=== PATIENT | male | born 1970 | race Caucasian/White ===

== ENCOUNTER → 2018-03-29 08:58 | Outpatient (CLI) | payer MEDICARE, MEDICAID, SELFPAY ==
[2018-03-29 10:07] LABS: Absolute Lymphocyte Count 2.57 X10^3/ul (0.83-4.51); Absolute Neutrophil Count 3.9 X10^3/uL (2.0-7.7); Basophil# 0.02 X10^3/uL; Basophil% 0.3 % (0-1); Eosinophil# 0.07 X10^3/uL; Hematocrit 44.5 % (40-54); Hemoglobin 14.5 g/dl (13.0-16.5); Lymphocyte # 2.57 X10^3/ul (4.0); Lymphocyte % 36.1 % (19-41); Mean Corp Hgb Conc 32.6 g/gl (32-36); Mean Corpuscular Hgb 31.6 pg (27.0-32.0); Mean Corpuscular Volume 96.9 fL (80-94); Mean Platelet Vol. 8.1 fl (6.2-12.0); Monocyte# 0.59 X10^3/uL; Monocyte% 8.3 % (0-10); Neutrophil # 3.85 X10^3/uL (2.7-7.7); Neutrophil % 54.2 % (47-70); Platelet Count 238 K/mm3 (150-450); RBC Distribution Width CV 13.9 % (11.6-14.6); RBC Distribution Width SD 49.4 fl (35.1-43.9); Red Blood Count 4.59 M/mm3 (4.6-6.2); White Blood Count 7.1 K/mm3 (4.4-11.0)
[2018-03-29 10:09] LABS: POSITIVE COUNT NO; POSITIVE DIFFERENTIAL NO; POSITIVE MORPHOLOGY NO
[2018-03-29 10:30] LABS: Anion Gap 6 (5-15); BUN 10 mg/dL (7-18); BUN/Creat Ratio 15.2 RATIO (10-20); Calcium,Total 8.5 mg/dL (8.5-10.1); Chloride 104 mmol/L (98-107); Cholesterol 141 mg/dL (200); Creatinine, Serum 0.66 mg/dL (0.70-1.30); EST Glomerular Filtration Rate 137 mL/min (>60); Est Glom Filt Rate - Afr Amer 165 mL/min (>60); Glucose 81 mg/dL (74-106); High Density Lipoprotein 30 mg/dL; Potassium 4.4 mmol/L (3.5-5.1); Sodium Level 137 mmol/L (136-145); Triglycerides 106 mg/dL; Very Low Density Lipoprotein 21 mg/dL (5-40)
== END ==
PROVIDERS: Family Provider Family Medicine; PCP Family Medicine; Visit Provider Family Medicine
DX: E78.5 Hyperlipidemia, unspecified (principal); R56.9 Unspecified convulsions
CPT/HCPCS: 36415; 80048; 80061; 85025

== ENCOUNTER → 2018-09-26 09:24 | Outpatient (CLI) | payer MEDICARE, MEDICAID, SELFPAY ==
[2018-09-26 10:25] LABS: ALB/GLOB Ratio 0.8 RATIO (0.9-2.4); AST(SGOT) 9 U/L (15-37); Alanine Aminotransfer ALT/SGPT 15 U/L (16-61); Alkaline Phosphatase 95 U/L (45-117); Anion Gap 6 (5-15); BUN 13 mg/dL (7-18); BUN/Creat Ratio 20.3 RATIO (10-20); Calcium,Total 8.7 mg/dL (8.5-10.1); Chloride 104 mmol/L (98-107); Cholesterol 180 mg/dL (200); Creatinine, Serum 0.64 mg/dL (0.70-1.30); EST Glomerular Filtration Rate 141 mL/min (>60); Est Glom Filt Rate - Afr Amer 171 mL/min (>60); Globulin 3.9 g/dL (2.2-4.2); Glucose 77 mg/dL (74-106); High Density Lipoprotein 33 mg/dL; Potassium 4.4 mmol/L (3.5-5.1); Protein, Total 6.9 g/dL (6.4-8.2); Sodium Level 137 mmol/L (136-145); Triglycerides 237 mg/dL; Very Low Density Lipoprotein 47 mg/dL (5-40)
== END ==
PROVIDERS: Family Provider Family Medicine; PCP Family Medicine; Referring Provider Family Medicine; Visit Provider Family Medicine
DX: E78.5 Hyperlipidemia, unspecified (principal)
CPT/HCPCS: 36415; 80053; 80061

== ENCOUNTER → 2019-04-25 15:30 | Outpatient (CLI) | payer MEDICARE, MEDICAID, SELFPAY ==
[2019-04-25 17:57] LABS: Cholesterol 163 mg/dL (200); High Density Lipoprotein 29 mg/dL; Triglycerides 228 mg/dL; Very Low Density Lipoprotein 46 mg/dL (5-40)
== END ==
PROVIDERS: Family Provider Family Medicine; PCP Family Medicine; Visit Provider Family Medicine
DX: E78.5 Hyperlipidemia, unspecified (principal)
CPT/HCPCS: 36415; 80061

== ENCOUNTER → 2020-08-06 14:19 | Outpatient (CLI) | payer MEDICARE, MEDICAID, SELFPAY ==
[2020-08-06 18:10] LABS: BUN 10 mg/dL (7-18); Calcium,Total 8.5 mg/dL (8.5-10.1); Cholesterol 163 mg/dL (200); Creatinine, Serum 0.71 mg/dL (0.70-1.30); EST Glomerular Filtration Rate 124 mL/min (>60); Est Glom Filt Rate - Afr Amer 150 mL/min (>60); Glucose 96 mg/dL (74-106); Sodium Level 135 mmol/L (136-145); Triglycerides 420 mg/dL
[2020-08-06 18:11] LABS: Anion Gap 4 (5-15); Chloride 98 mmol/L (98-107); High Density Lipoprotein 34 mg/dL
== END ==
PROVIDERS: PCP Family Medicine; Referring Provider Family Medicine; Visit Provider Family Medicine
DX: E78.5 Hyperlipidemia, unspecified (principal)
CPT/HCPCS: 36415; 80048; 80061

== ENCOUNTER 2020-09-01 07:02 | Day surgery (SDC) | payer MEDICARE, MEDICAID, SELFPAY ==
[2020-08-18 13:53] VITALS: BMI 27.3
[2020-09-01] VITALS (7 sets, daily range): BP systolic 91–109; BP diastolic 65–84; PULSE 68–76; RESP 16; TEMP 36.3–36.9; O2SAT 92–98; BMI 24.3
[2020-09-01] MEDS: Lactated Ringers 1,000 ML 100 ML IV (07:35)
--- NOTE | 2020-09-01 07:41 | HP_ITS ---
Intake Vital Signs 08/18/20 Height 5 ft 8 in 08/18/20 Weight: 180 lb 4 oz 08/18/20 BMI 27.3 08/18/20 BP 110/72 08/18/20 Blood Pressure Location Lt brachial 08/18/20 Position Sitting 08/18/20 Respiration 20 H 08/18/20 Pulse 70 08/18/20 Pulse Source NIBP 08/18/20 Pulse Oximetry (%) 95 08/18/20 Oxygen Delivery Method room air Intake Visit Reasons: CSCOPE Chief Complaint: screening colonoscopy Customer Experience Strategist Required: No Is patient in pain?: No Allergies No Known Allergies Allergy (Verified 05/16/13 14:49) Medications Pravastatin [Pravachol] 80 mg PO QHS 05/16/13 [History Confirmed 08/18/20] Propranolol HCl [Inderal (Beta Rosa)] 40 mg PO BID 05/16/13 [History Confirmed 08/18/20] Carbamazepine [Tegretol] 200 mg PO BID 06/16/13 [History Confirmed 08/18/20] Escitalopram Oxalate [Lexapro] 10 mg PO DAILY 12/06/13 [History Confirmed 08/18/20] Nicotine [Nicoderm Cq] 21 mg TRANSDERM. DAILY #30 patch 12/24/13 [Rx Confirmed 08/18/20] dextromethorphan 20 mg-quinidine 10 mg capsule 1 cap PO Q12H cap 08/18/20 [History] divalproex 500 mg tablet,extended release 24 hr 500 mg PO BID tab 08/18/20 [History Confirmed 08/18/20] PFSH Medical History (Updated 08/18/20 @ 13:52 by Arina Cates) Subarachnoid hemorrhage (Acute) Schizophrenia (Chronic) Remote TBI (Chronic) Hyperlipidemia (Acute) Seizure (Acute) Surgical History (Updated 08/18/20 @ 13:50 by Arina Cates) No significant past surgical history (Acute) Family History (Updated 08/18/20 @ 13:53 by Arina Cates) Father No problems noted. Social History (Updated 08/18/20 @ 13:[address] Santy Valdovinos MD) Smoking Status: Current every day smoker HPI HPI HPI: ANUJ LARSEN, is a 50 M who presents to the office today for HPI HPI Surgical H&P: Yes HPI: ANUJ LARSEN, is a 50 M who presents to the office today for Screening colonoscopy. The patient reports he is never had a screening colonoscopy. He denies any abdominal pain or blood in his stool. He has unknown family history. ROS General General: No weight change, appetite, fatigue, colon cancer, breast cancer or weakness HEENT HEENT: No difficulty swallowing, eye injury, eye surgery, swollen glands or hoarseness Endo Endocrine: No thyroid disease, diabetes mellitus, thyroid cancer, Hair loss, heat intolerance or cold intolerance Musc Musculoskeletal: No back problems, arthritis, rheumatoid arthritis, gout or joint pain Cardio Cardiovascular: No murmur, pacemaker, heart disease, atrial fibrillation, high blood pressure, heart attack, heart stent, palpitations, shortness of breat with exertion or chest pain Psych Psychiatric: No depression, anxiety or hearing voices Resp Respiratory: No shortness of breath, No sleep apnea, No cough, No COPD, No asthma, No emphysema, No wheezing Gastro Gastrointestinal: No abdominal pain, No nausea or vomiting, No diarrhea, No constipation, No blood in stool, No acid reflux, No hemorrhoids, No ulcers, No gallbladder problem, No black,tarry stools Andriy Hematologic: No blood thinners, No blood disorders, No bleeding, No anemia, No blood clots Neuro Neurologic: No weakness Exam Const General: cooperative Orientation: alert Limitations: altered mental status Resp Effort & Inspection: normal respiratory effort Auscultation: clear to auscultation bilaterally Cardio Rate: regular rate Rhythm: regular rhythm Heart Sounds: no murmurs GI Inspection: non-distended Palpation: soft, nontender Assessment & Plan Problems 1. Screen for colon cancer Z12.11 Plan Patient is here to discuss screening colonoscopy. He is here with his caregiver. He has no nausea or vomiting or abdominal pain or blood in his stool. He will have a screening colonoscopy. I explained endoscopy in detail to the patient. I explained the risks including but not limited to stroke or heart attack with anesthesia, perforation of the GI tract, bleeding, infection. I explained that any of these could necessitate further emergency surgery. The patient understands and all questions were answered sufficiently. The patient wishes to proceed with procedure. Santy Valdovinos MD Pager: [facility] [address] [place] [address], [address] [place] [address] Office: Orders Orders: Colonoscopy Today Z12.11 Medications New: dextromethorphan-quinidine 20-10 mg 1 cap PO Q12H Discontinued: lorazepam Discontinued Reason: Pt no longer taking 0.5 mg PO Q4H PRN PRN 30 tabs 0RF Anxiety/Agitation Coding Level of Care Code Off vis,new,level 2 Diagnoses Screen for colon cancer Z12.11 I have re-examined the patient. There are no clinical changes since date of exam.
--- NOTE | 2020-09-01 08:00 | COLBX_PTH ---
PATIENT: ANUJ LARSEN LOC: EN U#:[id number] AGE/SX: 50/M ROOM: RE09/01/[address]: Dr. Santy Valdovinos MD : 1970 BED: DIS: 09/01/2020 SPEC #: [id number] RECD: 09/01/20 13:44 STATUS: BERNICE RANJITH #: [id number] JADEN: 09/01/20 08:[address]: Santy Valdovinos DEPT: SURGICAL PATHOLOGY RECD BY: Jen Watts ENTERED: 09/02/20 07:37 SP TYPE: COLON BX OTHR DR: Dr. Rodney Carroll MD Tissues: A - Transverse colon B - Transverse colon Procedures: Surgery Specimen Level IV HEADER OPERATION: Colonoscopy (MAC) PRE-OP DIAGNOSIS: Screen for colon cancer TISSUE SUBMITTED: A - Transverse colon polyp, B - Distal transverse colon polyp MICROSCOPIC DIAGNOSIS A. Transverse colon polyp, biopsy: Hyperplastic polyp. B. Distal transverse colon polyp, biopsy: Fragments of hyperplastic polyp. AM:anil 09/03/2020 MICROSCOPIC DESCRIPTION Slides are reviewed. GROSS DESCRIPTION A - Received in fixative is one container labeled with the patient's name and designated transverse colon polyp. The specimen consists of a khan-pink polyp measuring 0.7 x 0.5 x 0.3 cm. The specimen is totally submitted in one cassette. B - Received in fixative is one container labeled with the patient's name and designated distal transverse colon polyp. The specimen consists of multiple irregular fragments of light khan soft tissue that in aggregate measure 2 x 0.5 x 0.2 cm. The specimen is totally submitted in one cassette. / SJ:anil 09/02/20 TC:5 CPT: 42564 x2
--- NOTE | 2020-09-01 08:25 | OP.CCLET_ITS ---
09/01/2020 Rodney Carroll MD [address] [id number] Re : Colonoscopy procedure for Manolo Saucedo Dear Dr. Carroll This procedure was performed on Tuesday, September 01, 2020. My impressions and recommendations are as follows: Impressions : - Two 14 mm polyps in the transverse colon and in the distal transverse colon, removed with a hot snare. Resected and retrieved. - The examination was otherwise normal on direct and retroflexion views. Recommendations : - Discharge patient to home. - Resume previous diet. - Continue present medications. - Await pathology results. - Repeat colonoscopy in 3 years for surveillance of multiple polyps. My findings are described in the full procedure note, which is enclosed. If I can be of further assistance, please feel free to contact me at Doctor phone number(s): , Work: . Sincerely, Santy Valdovinos MD 09/01/2020 8:24:57 AM This report has been signed electronically.
--- NOTE | 2020-09-01 08:25 | OP.COLON_ITS ---
Patient Name: Manolo Saucedo Procedure Date: 09/01/2020 7:50 AM Date of : 1970 Age: 50 Procedure: Colonoscopy Indications: Screening for colorectal malignant neoplasm Providers: Santy Valdovinos MD Referring MD: Rodney Carroll MD Medicines: Monitored Anesthesia Care Patient Profile: This is a 50 year old male. Refer to note in patient chart for documentation of history and physical. Last Colonoscopy: none. The patient's first colonoscopy is today. Complications: No immediate complications. Procedure: Pre-Anesthesia Assessment: - Prior to the procedure, a History and Physical was performed, and patient medications and allergies were reviewed. The patient's tolerance of previous anesthesia was also reviewed. The risks and benefits of the procedure and the sedation options and risks were discussed with the patient. All questions were answered, and informed consent was obtained. Prior Anticoagulants: The patient has taken no previous anticoagulant or antiplatelet agents. After reviewing the risks and benefits, the patient was deemed in satisfactory condition to undergo the procedure. After I obtained informed consent, the scope was passed under direct vision. Throughout the procedure, the patient's blood pressure, pulse, and oxygen saturations were monitored continuously. The pediatric colonoscope was introduced through the anus and advanced to the cecum, identified by appendiceal orifice and ileocecal valve. The colonoscopy was performed without difficulty. The patient tolerated the procedure well. The quality of the bowel preparation was good. Scope In: 7:59:31 AM Scope Withdrawal Time 0 hours 12 minutes 52 seconds Scope Out: 8:19:38 AM Total Procedure Duration Time 0 hours 20 minutes 7 seconds Findings: Two sessile polyps were found in the transverse colon and distal transverse colon. The polyps were 14 mm in size. These polyps were removed with a hot snare. Resection and retrieval were complete. The exam was otherwise without abnormality on direct and retroflexion views. Impression: - Two 14 mm polyps in the transverse colon and in the distal transverse colon, removed with a hot snare. Resected and retrieved. - The examination was otherwise normal on direct and retroflexion views. Recommendation: - Discharge patient to home. - Resume previous diet. - Continue present medications. - Await pathology results. - Repeat colonoscopy in 3 years for surveillance of multiple polyps. Procedure Code(s): --- Professional --- 66939, Colonoscopy, flexible; with removal of tumor(s), polyp(s), or other lesion(s) by snare technique Diagnosis Code(s): --- Professional --- Z12.11, Encounter for screening for malignant neoplasm of colon D12.3, Benign neoplasm of transverse colon (hepatic flexure or splenic flexure) CPT copyright 2017 [employer]. All rights reserved. The codes documented in this report are preliminary and upon chair mechanic review may be revised to meet current compliance requirements. Santy Valdovinos MD 09/01/2020 8:24:57 AM This report has been signed electronically. Number of Addenda: 0 Note Initiated On: 09/01/2020 7:50 AM
== END 2020-09-01 09:29 | disposition home or self-care (01) ==
LOC: EN 07:02 → AC 07:03
PROVIDERS: PCP Family Medicine; Referring Provider Family Medicine; Visit Provider Surgery
PROC: 0DJD8ZZ Inspection of Lower Intestinal Tract, Via Natural or Artificial Opening Endoscopic (ICD-10-PCS; CPT 45378; principal; 2020-09-01 07:55)
DX: Z12.11 Encounter for screening for malignant neoplasm of colon (principal); K63.5 Polyp of colon; I10 Essential (primary) hypertension; R56.9 Unspecified convulsions; F17.200 Nicotine dependence, unspecified, uncomplicated; E78.00 Pure hypercholesterolemia, unspecified; F41.9 Anxiety disorder, unspecified; F32.9 Major depressive disorder, single episode, unspecified; Z79.899 Other long term (current) drug therapy; Z20.822 Contact with and (suspected) exposure to COVID-19
CPT/HCPCS: 45380; 87426; 88305; C9803; J7120

== ENCOUNTER → 2022-09-08 | Outpatient (CLI) | payer MEDICARE, MEDICAID, SELFPAY ==
[2022-09-08 18:03] LABS: Absolute Lymphocyte Count 2.84 X10^3/uL (0.83-4.51); Absolute Neutrophil Count 2.1 X10^3/uL (2.0-7.7); Basophil# 0.03 X10^3/uL; Basophil% 0.6 % (0-1); Eosinophil# 0.09 X10^3/uL; Eosinophils% 1.7 % (0-5); Hematocrit 42.1 % (40-54); Hemoglobin 13.3 g/dL (13.0-16.5); Lymphocyte # 2.84 X10^3/ul (0.83-4.51); Lymphocyte % 52.3 % (19-41); Mean Corp Hgb Conc 31.6 g/dL (32-36); Mean Corpuscular Hgb 31.7 pg (27.0-32.0); Mean Corpuscular Volume 100.2 fL (80-94); Mean Platelet Vol. 8.9 fl (6.2-12.0); Monocyte# 0.38 X10^3/uL; NRBC Flagged by Analyzer 0 % (0-5); Neutrophil # 2.08 X10^3/uL (2.7-7.7); Neutrophil % 38.2 % (47-70); Platelet Count 214 K/mm3 (150-450); RBC Distribution Width CV 12.4 % (11.6-14.6); RBC Distribution Width SD 45.5 fl (35.1-43.9); White Blood Count 5.4 K/mm3 (4.4-11.0)
[2022-09-08 18:19] LABS: ALB/GLOB Ratio 0.8 RATIO (0.9-2.4); AST(SGOT) 16 U/L (15-37); Alanine Aminotransfer ALT/SGPT 28 U/L (16-61); Albumin, Serum 3.1 g/dL (3.2-5.0); Alkaline Phosphatase 66 U/L (45-117); Anion Gap 5 (5-15); BUN 18 mg/dL (7-18); BUN/Creat Ratio 22.2 RATIO (10-20); Calcium,Total 8.9 mg/dL (8.5-10.1); Chloride 105 mmol/L (98-107); Cholesterol 167 mg/dL (200); Creatinine, Serum 0.81 mg/dL (0.70-1.30); EST Glomerular Filtration Rate 106 mL/min (>60); Est Glom Filt Rate - Afr Amer 128 mL/min (>60); Globulin 3.8 g/dL (2.2-4.2); Glucose 80 mg/dL (74-106); High Density Lipoprotein 35 mg/dL; Potassium 5.2 mmol/L (3.5-5.1); Protein, Total 6.9 g/dL (6.4-8.2); Sodium Level 138 mmol/L (136-145); Triglycerides 274 mg/dL; Very Low Density Lipoprotein 55 mg/dL (5-40)
[2022-09-08 18:37] LABS: Valproic Acid (Depakene) Level 82 ug/mL (50-100)
== END | disposition home or self-care (01) ==
LOC: MFPLAB 15:48
PROVIDERS: PCP Family Medicine; Referring Provider Family Medicine; Visit Provider Family Medicine
DX: E78.5 Hyperlipidemia, unspecified (principal); R56.9 Unspecified convulsions
CPT/HCPCS: 36415; 80053; 80061; 80156; 80164; 85025

== ENCOUNTER 2024-03-10 08:49 | Inpatient (IN) | payer MEDICARE, MEDICAID, SELFPAY ==
[2024-03-10] VITALS (7 sets, daily range): BP systolic 91–111; BP diastolic 63–74; PULSE 87–109; RESP 13–20; TEMP 36.5–36.8; O2SAT 91–99; BMI 25.0
[2024-03-10 09:13] LABS: Bedside Glucose 119 mg/dL (74-106)
--- NOTE | 2024-03-10 09:14 | CT_ITS ---
EXAM: CT ABDOMEN AND PELVIS WITH INTRAVENOUS CONTRAST CLINICAL INDICATION: abdominal pain TECHNIQUE: Helically acquired images were obtained of the abdomen and pelvis with intravenous contrast. This CT exam was performed using one or more of the following dose reduction techniques: automated exposure control, adjustment of the mA and/or kV according to patient size, and/or use of iterative reconstruction technique. CONTRAST: [id number] 100ML COMPARISON: No relevant prior studies available. FINDINGS: LOWER THORAX: Focal airspace opacification within the right upper lobe posterior segment adjacent to the fissure suggestive of pneumonia. Dependent atelectatic changes of both lower lobes of the lung. ABDOMEN: LIVER: Normal. Homogeneous. No focal mass. GALLBLADDER AND BILE DUCTS: Normal. No calcified gallstones. No gallbladder distention or wall edema. No intra- or extrahepatic biliary ductal dilation. PANCREAS: Normal. No focal cystic or solid mass. SPLEEN: Normal. Normal size without focal cystic or solid mass. ADRENALS: Normal. No nodules. KIDNEYS AND URETERS: Normal. Normal renal size and position. No hydronephrosis. STOMACH AND BOWEL: Normal. No bowel distention. No focal inflammatory change. PELVIS: APPENDIX: Appendix is visualized and normal in appearance. BLADDER: Normal. REPRODUCTIVE: Unremarkable as visualized. No mass. ABDOMEN and PELVIS: INTRAPERITONEAL SPACE: Normal. No ascites or other fluid collection. No free air. BONES/JOINTS: No suspicious lytic or blastic abnormality. SOFT TISSUES: Normal. No discrete abdominal or pelvic wall hernia. VASCULATURE: Normal. Abdominal aorta is non-dilated. LYMPH NODES: Normal. No enlarged lymph nodes. CT/Abdomen/Pelvis W IV Cont ONLY IMPRESSION: 1. No acute abdominal or pelvic abnormality. 2. Suspect right upper lobe pneumonia. Electronically Signed: Goran Pulido MD at 10:41 EDT ,
--- NOTE | 2024-03-10 09:15 | CT_ITS ---
INDICATION: confusion EXAMINATION: CT BRAIN - CT Head or Brain W/O Contrast Injection TECHNIQUE: Multiple axial images were obtained of the head without intravenous contrast. The protocol utilizes one or more of the following dose reduction techniques: automated exposure control, adjustment of mA and/or kV according to patient size,and/or use of iterative reconstruction technique. IV Contrast dosage and agent: None. RADIATION DOSAGE (If Supplied By Facility): CTDIvol = ( 44.99 ) mGy, DLP = ( 829.85 ) mGycm COMPARISON: Prior study dated: 12/16/2013 FINDINGS: BRAIN PARENCHYMA: No intra- or extra-axial hemorrhage. No evidence of acute infarct. No intracranial mass or mass effect. There is preservation of the phillips/white matter interface. Posterior fossa structures are unremarkable. CSF SPACES: Appropriate for age. No hydrocephalus. Basal cisterns are patent. CALVARIUM, SKULL BASE, PARANASAL SINUSES AND MASTOID AIR CELLS: Clear. No discrete lytic or blastic abnormalities. ORBITS: Both globes, extraocular muscles, optic nerves and retrobulbar fat appear unremarkable. CT/Brain/Head without Contrast IMPRESSION: No acute intracranial process. Electronically Signed: Abel Centeno MD at 11:10 EDT ,
--- NOTE | 2024-03-10 09:17 | EX.ED.DYSGE1 ---
HPI History of Present Illness Chief Complaint: Weakness Narrative Narrative: Chief complaint and HPI: Confusion. 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 Patient is a poor historian. History obtained by patient's sister who states that this morning she found the patient laying on the ground unable to get himself up or put on his clothes. She called EMS. Patient was found to be hypoglycemic with a glucose in the 60s. Was given oral glucose. Sister still feels that the patient is very slow to respond and does not seem at his baseline. Patient is unable to tell me his birthday which sister states he can usually. Last known normal was yesterday evening around 9 PM. Patient usually resides in a custodial. Patient and sister deny fever, URI symptoms, chest pain, shortness of breath, nausea, vomiting. Patient endorses cough and abdominal pain. Patient is incontinence intermittently at baseline. Review of systems: See HPI Medications: As listed on the chart Allergies: As listed on the chart PFSH: Per chart Vital signs: As listed on the chart. Reviewed. Physical exam: Gen: Alert, NAD, oriented to self and place but does not know his birthday which is abnormal for him Head: Normocephalic, atraumatic Eyes: No sclera icterus, conjunctiva clear, PERRL, EOMI ENT: Moist mucous membranes, No facial asymmetry Neck: Trachea midline, No JVD CV: RRR, no murmurs, no peripheral edema Resp: Lungs CTA BL, no w/r/c GI: Abd soft, non-distended, mildly tender to palpation diffusely, no r/r/g Musc: Moves all extremities, no deformity, strength equal in all extremities Skin: Warm, dry Neuro: Alert, grossly intact, sensation intact, no focal deficits Psych: Cooperative, appropriate mood and affect EKG: Interpreted by me/EM physician: EKG shows normal sinus rhythm with a heart rate of 95. There is some nonspecific ST changes and V3 and V4. No ST elevation. Diagnostic: Interpreted by me/EM physician: 1 view chest x-ray with consolidation in the right upper lobe concern for pneumonia. No effusions. No pneumothorax. [facility] Medical History Hyperlipidemia Seizure Subarachnoid hemorrhage Schizophrenia Remote TBI Home Medications ?Medication ?Instructions ?Recorded ?Last Taken ?Type pravastatin 80 mg tablet 80 mg PO QHS cholesterol 05/16/13 Unknown History propranolol 40 mg tablet 20 mg PO BID Blood Pressure/ HR 05/16/13 09/01/20 History carbamazepine 200 mg tablet 200 mg PO DAILY Epilepsy 06/16/13 09/01/20 History dextromethorphan 20 mg-quinidine 1 cap PO Q12H Emotional 08/18/20 Unknown History 10 mg capsule Incontinence divalproex 500 mg tablet,extended 500 mg PO BID Epilepsy 08/18/20 09/01/20 History release 24 hr carbamazepine 200 mg tablet 400 mg PO QHS Mental/ Mood disorder 08/27/20 Unknown History escitalopram oxalate 20 mg tablet 20 mg PO DAILY Mood 08/27/20 Unknown History meloxicam 15 mg tablet 15 mg PO DAILY Arthritis 03/10/24 Unknown History Allergy/AdvReac Type Severity Reaction Status Date / Time No Known Allergies Allergy Verified 03/10/24 08:57 Family History Father No problems noted. Family History unable to obtain Surgical History No significant past surgical history Social History Smoking Status: Current every day smoker tobacco type: cigarettes EXAM Physical Exam Const Vital Signs: 03/10/24 08:50 03/10/24 08:54 03/10/24 10:50 Temperature 97.7 F L Temperature Source Temporal Pulse Rate 94 93 Respiratory Rate 16 18 Respiratory Effort Normal Respiratory Pattern Normal Blood Pressure 109/74 103/66 Blood Pressure Mean 85 78 Pulse Ox 93 93 Oxygen Delivery Method Room Air Room Air 03/10/24 12:00 Temperature Temperature Source Pulse Rate 89 Respiratory Rate 20 H Respiratory Effort Respiratory Pattern Blood Pressure 91/63 Blood Pressure Mean 72 Pulse Ox 91 Oxygen Delivery Method Room Air MDM MDM MDM Narrative Medical decision making narrative: 53-year-old male presents for evaluation of generalized weakness, confusion, abdominal pain. Also endorses cough. Differential diagnosis includes but is not limited to viral illness, gastroenteritis, diverticulitis, pneumonia, CAD, seizure. Low suspicion for TIA/CVA suspect more encephalopathy. Patient has intellectual disability due to head trauma which makes physical exam and history not as reliable. NS bolus ordered. Abdominal pain/infectious workup ordered including labs and CT abdomen and pelvis and CT head. intermediate called in and spoke with nursing they are requesting tox screen be ordered given that he was at his sister's house. This was ordered. EKG reviewed. CBC with mild leukocytosis of 12 with a new anemia of 12.1. CMP without MARCUS or electrolyte abnormality. Patient does have mild baseline transaminitis. Lipase unremarkable. UA negative for UTI. Urine drug screen negative. Lactic acid elevated at 2.3. This may be due to infection versus possible unwitnessed seizure. Troponin unremarkable. CT head without any acute intracranial abnormality. CT abdomen pelvis without acute intra-abdominal pathology but suspect right upper lobe pneumonia. Chest x-ray confirms this. Patient's blood pressure drifting down to the 90s. Another NS bolus ordered. Azithromycin and Rocephin ordered for suspected community-acquired pneumonia. Given patient's generalized weakness, encephalopathy, lactic acidosis with pneumonia he will require admission for antibiotics and further observation. Hospital service was contacted and patient was discussed. Dr. Mckeon excepted admission. Impression 1. Encephalopathy multifactorial 2. Pneumonia 3. Lactic acidosis 4. Anemia Lab Data Labs: Laboratory Results - last 24 hr 03/10/24 03/10/24 03/10/24 08:55 09:10 09:25 WBC 12.0 H RBC 3.86 L Hgb 12.1 L Hct 37.3 L MCV 96.6 H MCH 31.3 MCHC 32.4 RDW Std Deviation 42.6 RDW Coeff of Smith 12.0 Plt Count 239 MPV 8.0 Immature Gran % (Auto) 0.700 Neut % (Auto) 72.9 H Lymph % (Auto) 14.1 L [place] % (Auto) 11.8 H Eos % (Auto) 0.1 Baso % (Auto) 0.4 Absolute Neuts (auto) 8.7 H Absolute Lymphs (auto) 1.69 Nucleated RBC % 0 Sodium 136 Potassium 3.9 Chloride 104 Carbon Dioxide 23.0 Anion Gap 9 BUN 12 Creatinine 0.79 Est GFR (MDRD) Af Amer 132 Est GFR (MDRD) Non-Af 109 BUN/Creatinine Ratio 15.2 Glucose 134 H Lactic Acid 2.3 H* Calcium 9.2 Magnesium Total Bilirubin 0.20 AST 13 L ALT 11 L Alkaline Phosphatase 70 Troponin I High Sens 3 Total Protein 7.1 Albumin 2.6 L Globulin 4.5 H Albumin/Globulin Ratio 0.6 L Lipase 34 Urine Color Urine Clarity Urine pH Ur Specific [place] Urine Protein Urine Glucose (UA) Urine Ketones Urine Occult Blood Urine Nitrite Urine Bilirubin Urine Urobilinogen Ur Leukocyte Esterase Urine RBC Urine WBC Ur Squamous Epith Cells Urine Bacteria Urine Mucus Urine Opiates Screen Urine Methadone Screen Ur Barbiturates Screen Ur Phencyclidine Scrn Ur Amphetamines Screen MDMA (Ecstasy) Screen U Benzodiazepines Scrn Urine Cocaine Screen U Cannabinoids Screen Ur Drug Screen Comment Ethyl Alcohol < 3.0 POC Glucose 119 H 03/10/24 03/10/24 10:16 10:35 WBC RBC Hgb Hct MCV MCH MCHC RDW Std Deviation RDW Coeff of Smith Plt Count MPV Immature Gran % (Auto) Neut % (Auto) Lymph % (Auto) [place] % (Auto) Eos % (Auto) Baso % (Auto) Absolute Neuts (auto) Absolute Lymphs (auto) Nucleated RBC % Sodium Potassium Chloride Carbon Dioxide Anion Gap BUN Creatinine Est GFR (MDRD) Af Amer Est GFR (MDRD) Non-Af BUN/Creatinine Ratio Glucose Lactic Acid Calcium Magnesium 1.8 Total Bilirubin AST ALT Alkaline Phosphatase Troponin I High Sens Total Protein Albumin Globulin Albumin/Globulin Ratio Lipase Urine Color Yellow Urine Clarity Clear Urine pH 6.0 Ur Specific [place] 1.010 Urine Protein 30 H Urine Glucose (UA) Normal Urine Ketones 5 H Urine Occult Blood Negative Urine Nitrite Negative Urine Bilirubin Negative Urine Urobilinogen Normal Ur Leukocyte Esterase Negative Urine RBC 0-5 SEEN Urine WBC 0-5 SEEN Ur Squamous Epith Cells 0-5 SEEN Urine Bacteria 0 SEEN Urine Mucus 0 SEEN Urine Opiates Screen NEGATIVE Urine Methadone Screen NEGATIVE Ur Barbiturates Screen NEGATIVE Ur Phencyclidine Scrn NEGATIVE Ur Amphetamines Screen NEGATIVE MDMA (Ecstasy) Screen NEGATIVE U Benzodiazepines Scrn NEGATIVE Urine Cocaine Screen NEGATIVE U Cannabinoids Screen NEGATIVE Ur Drug Screen Comment Ethyl Alcohol POC Glucose Radiography Diagnostic Testing: Clinical Impression(s) from Imaging Studies Abdomen/Pelvis CT 03/10/24 09:14 IMPRESSION: 1. No acute abdominal or pelvic abnormality. 2. Suspect right upper lobe pneumonia. Electronically Signed: Goran Pulido MD at 10:41 EDT Reading Location ID and State: [facility] / [place] Tel , Service support , Brain CT 03/10/24 09:15 IMPRESSION: No acute intracranial process. Electronically Signed: Abel Centeno MD at 11:10 EDT , Chest X-Ray 03/10/24 09:35 IMPRESSION: Patchy infiltrates in the right upper lobe and left lung base concerning for pneumonia. Electronically Signed: Abel Centeno MD at 11:35 EDT , Discharge Plan Disposition Disposition: Acute Care Hospital [facility] Discharge Date/Time: 03/10/24 13:08
[2024-03-10] MEDS: 0.9% Normal Saline (1000mL) 1,000 ML 999 ML IV ×2 (09:23→12:28)
[2024-03-10 09:33] LABS: Absolute Lymphocyte Count 1.69 X10^3/uL (0.83-4.51); Absolute Neutrophil Count 8.7 X10^3/uL (2.0-7.7); Basophil# 0.05 X10^3/uL; Basophil% 0.4 % (0-1); Eosinophil# 0.01 X10^3/uL; Eosinophils% 0.1 % (0-5); Hematocrit 37.3 % (40-54); Hemoglobin 12.1 g/dL (13.0-16.5); Lymphocyte # 1.69 X10^3/ul (0.83-4.51); Lymphocyte % 14.1 % (19-41); Mean Corp Hgb Conc 32.4 g/dL (32-36); Mean Corpuscular Hgb 31.3 pg (27.0-32.0); Mean Corpuscular Volume 96.6 fL (80-94); Monocyte# 1.41 X10^3/uL; Monocyte% 11.8 % (0-10); NRBC Flagged by Analyzer 0 % (0-5); Neutrophil # 8.72 X10^3/uL (2.7-7.7); Neutrophil % 72.9 % (47-70); Platelet Count 239 K/mm3 (150-450); RBC Distribution Width SD 42.6 fl (35.1-43.9); Red Blood Count 3.86 M/mm3 (4.6-6.2)
--- NOTE | 2024-03-10 09:35 | RAD_ITS ---
INDICATION: weakness EXAMINATION/TECHNIQUE: X-RAY - XR Chest 1 View COMPARISON: Prior study dated: 07/04/2013 FINDINGS: LINES/DEVICES: None. LUNGS: Patchy infiltrate in the right upper lobe concerning for pneumonia. Mild infiltrate in the left lower lung. No evidence of pleural effusions. MEDIASTINUM AND CARDIOVASCULAR STRUCTURES: Cardiac silhouette not enlarged. Central airways and mediastinal contour are unremarkable. BONES AND SOFT TISSUES: Unremarkable. RAD/Chest 1 View (Portable) IMPRESSION: Patchy infiltrates in the right upper lobe and left lung base concerning for pneumonia. Electronically Signed: Abel Centeno MD at 11:35 EDT ,
[2024-03-10 09:50] LABS: Alcohol, Blood (Medical)-Serum < 3.0 mg/dL
[2024-03-10 09:52] LABS: ALB/GLOB Ratio 0.6 RATIO (0.9-2.4); AST(SGOT) 13 U/L (15-37); Alanine Aminotransfer ALT/SGPT 11 U/L (16-61); Albumin, Serum 2.6 g/dL (3.2-5.0); Alkaline Phosphatase 70 U/L (45-117); Anion Gap 9 (5-15); BUN 12 mg/dL (7-18); BUN/Creat Ratio 15.2 RATIO (10-20); Calcium,Total 9.2 mg/dL (8.5-10.1); Chloride 104 mmol/L (98-107); Creatinine, Serum 0.79 mg/dL (0.70-1.30); EST Glomerular Filtration Rate 109 mL/min (>60); Est Glom Filt Rate - Afr Amer 132 mL/min (>60); Globulin 4.5 g/dL (2.2-4.2); Glucose 134 mg/dL (74-106); Lipase 34 U/L (13-75); Potassium 3.9 mmol/L (3.5-5.1); Protein, Total 7.1 g/dL (6.4-8.2); Sodium Level 136 mmol/L (136-145); Troponin-I HS 3 pg/mL (3.0-78.0)
[2024-03-10 09:56] LABS: Lactic Acid 2.3 mmol/L (0.4-1.9)
[2024-03-10 10:21] LABS: Bacteria 0 SEEN /hpf (None Seen); Mucous, Urine 0 SEEN /hpf (<or=2+)
[2024-03-10 10:35] LABS: Color, Urine Yellow (Yellow); Glucose, Dipstick Normal (Normal); Ketone-Dipstick 5 mg/dl (Negative); Leukocyte Esterase-Dipstick Negative /ul (Negative); Nitrite-Dipstick Negative (Negative); Occult Blood-Urine Negative /ul (Negative); Protein-Dipstick 30 mg/dl (Negative); Urine Bilirubin Dipstick Negative (Negative); Urine Clarity Clear (Clear); Urine Urobilinogen Normal (Normal)
[2024-03-10 10:45] LABS: Amphetamine Urine VISTA NEGATIVE (<1000 ng/mL); Barbiturate Urine VISTA NEGATIVE (< 200 ng/mL); Benzodiazepine Urine VISTA NEGATIVE (< 200 ng/mL); Cocaine Urine VISTA NEGATIVE (< 300 ng/mL); Ecstacy Urine VISTA NEGATIVE (< 500 ng/mL); Methadone Urine VISTA NEGATIVE (< 300 ng/mL); PCP Urine VISTA NEGATIVE (< 25 ng/mL); THC Urine VISTA NEGATIVE (< 50 ng/mL); Vista UDS pH Range 5
[2024-03-10 10:49] LABS: Red Blood Cells-Urine 0-5 SEEN /hpf (0-5); Squamous Epithelial Cells - UA 0-5 SEEN /hpf (0-5); White Blood Cells 0-5 SEEN /hpf (0-5)
--- NOTE | 2024-03-10 12:26 | HP.PCM.HOS_ITS ---
HPI - General General Date of Admission: 03/10/24 Date of Service: 03/10/24 Chief Complaint: Altered mental status/confusion. Dizzy and lightheaded. Hypoglycemia glucose 60 by EMS. HPI Narrative ANUJ LARSEN, is a 53 M was brought by EMS for being dizzy, generalized weak and hypoglycemia. Glucose was found 60 and was given oral glucose. Patient usually has blood pressure in 100s. It was 91/63, 98/64 x 2 times and the patient receiving second liter of IV bolus. Patient is in senior living and is compromised higher mental function. As per the daughter, he has intermittent cough. Chest x-ray initially reviewed and shows right upper lobe patchy infiltrate. Patient is more confused, disoriented more than baseline intellectual and developmental disability and lives in the senior living. Patient not following simple commands, unusual change in behavior like he was being on the floor, pooped on the toilet floor, taking more time to process with the staring look. As per her sister, Ms. Solo who is an ER said he has cough all the time and did not notice increase in the frequency or severity of cough or shortness of breath. He smokes cigarettes 5 to 6 cigarettes/day. He was smoking a pack per day started at the age of 16 and lives with her 2 room partner in senior living in [place]. He stays with her sister on weekends In ED, chest x-ray shows right upper lobe infiltrate. Lactic acid elevated. Patient further admitted for pneumonia [facility] Medical History Hyperlipidemia Seizure Subarachnoid hemorrhage Schizophrenia Remote TBI Home Medications ?Medication ?Instructions ?Recorded ?Last Taken ?Type pravastatin 80 mg tablet 80 mg PO QHS 05/16/13 Unknown History propranolol 40 mg tablet 20 mg PO BID 05/16/13 09/01/20 History carbamazepine 200 mg tablet 200 mg PO DAILY 06/16/13 09/01/20 History dextromethorphan 20 mg-quinidine 1 cap PO Q12H 08/18/20 Unknown History 10 mg capsule divalproex 500 mg tablet,extended 500 mg PO BID 08/18/20 09/01/20 History release 24 hr carbamazepine 200 mg tablet 400 mg PO QHS 08/27/20 Unknown History escitalopram oxalate 20 mg tablet 20 mg PO DAILY 08/27/20 Unknown History Allergy/AdvReac Type Severity Reaction Status Date / Time No Known Allergies Allergy Verified 03/10/24 08:57 Family History Father No problems noted. Family History unable to obtain Surgical History No significant past surgical history Social History Smoking Status: Current every day smoker tobacco type: cigarettes ROS ROS Narrative 14 system ROS could not be obtained as patient is confused disoriented with disorganized behavior, and inattention He denies burning micturition. Denies abdominal pain or chest pain Review of Systems ROS Unobtainable: due to encephalopathy and due to mental status Vital Signs Vital Signs Vital Signs: 03/10/24 08:50 03/10/24 08:54 03/10/24 10:50 Temperature 97.7 F L Temperature Source Temporal Pulse Rate 94 93 Respiratory Rate 16 18 Respiratory Effort Normal Respiratory Pattern Normal Blood Pressure 109/74 103/66 Blood Pressure Mean 85 78 Pulse Ox 93 93 Oxygen Delivery Method Room Air Room Air 03/10/24 12:00 Temperature Temperature Source Pulse Rate 89 Respiratory Rate 20 H Respiratory Effort Respiratory Pattern Blood Pressure 91/63 Blood Pressure Mean 72 Pulse Ox 91 Oxygen Delivery Method Room Air Physical Exam Narrative General: Awake, confused, disoriented, incoherent speech. HEENT: Atraumatic, PERRLA, EOMI, Normocephalic. Right-sided facial droop because of traumatic accident. Oral: Oral mucosa dry. No Gingival or Mucosal Lesions/ Ulcerations Neck: Supple, No JVD, Negative Carotid Bruits Chest wall/Lungs: Air entry diminished in bilateral lung bases. No crepitation/rhonchi. Not tachypneic. Cardiovascular: Regular rate, Regular Rhythm, Normal S1, Normal S2, No M/G/R Abdomen: Bowel Sounds Present, Soft, Non Tender, Non-Distended : No dysuria. No renal angle tenderness. No suprapubic tenderness. Extremities: No edema, Capillary Refill Less than 3 Seconds Skin: No rashes, No breakdown Musculoskeletal: No Tenderness to Palpation of Joints or Extremities Neurological: Cranial nerves II-XII grossly intact, DTR 2+/4. No acute focal neurological deficit. Psych/Mental Status: Flat affect. Baseline intellectual and developmental disability. Disorganized behavior. Difficulty completing tasks. Results Lab / Micro Data 03/10/24 09:10 03/10/24 09:10 Labs: Laboratory Results - last 24 hr 03/10/24 08:55: POC Glucose 119 H 03/10/24 09:10: WBC 12.0 H, RBC 3.86 L, Hgb 12.1 L, Hct 37.3 L, MCV 96.6 H, MCH 31.3, MCHC 32.4, RDW Std Deviation 42.6, RDW Coeff of [place] 12.0, Plt Count 239, MPV 8.0, Immature Gran % (Auto) 0.700, Neut % (Auto) 72.9 H, Lymph % (Auto) 14.1 L, [place] % (Auto) 11.8 H, Eos % (Auto) 0.1, Baso % (Auto) 0.4, Absolute Neuts (auto) 8.7 H, Absolute Lymphs (auto) 1.69, Nucleated RBC % 0, Sodium 136, Potassium 3.9, Chloride 104, Carbon Dioxide 23.0, Anion Gap 9, BUN 12, Creatinine 0.79, Est GFR (MDRD) Af Amer 132, Est GFR (MDRD) Non-Af 109, BUN/Creatinine Ratio 15.2, Glucose 134 H, Calcium 9.2, Total Bilirubin 0.20, AST 13 L, ALT 11 L, Alkaline Phosphatase 70, Troponin I High Sens 3, Total Protein 7.1, Albumin 2.6 L, Globulin 4.5 H, Albumin/Globulin Ratio 0.6 L, Lipase 34, Ethyl Alcohol < 3.0 03/10/24 09:25: Lactic Acid 2.3 H* 03/10/24 10:16: Urine Color Yellow, Urine Clarity Clear, Urine pH 6.0, Ur Specific [place] 1.010, Urine Protein 30 H, Urine Glucose (UA) Normal, Urine Ketones 5 H, Urine Occult Blood Negative, Urine Nitrite Negative, Urine Bilirubin Negative, Urine Urobilinogen Normal, Ur Leukocyte Esterase Negative, Urine RBC 0-5 SEEN, Urine WBC 0-5 SEEN, Ur Squamous Epith Cells 0-5 SEEN, Urine Bacteria 0 SEEN, Urine Mucus 0 SEEN, Urine Opiates Screen NEGATIVE, Urine Methadone Screen NEGATIVE, Ur Barbiturates Screen NEGATIVE, Ur Phencyclidine Scrn NEGATIVE, Ur Amphetamines Screen NEGATIVE, MDMA (Ecstasy) Screen NEGATIVE, U Benzodiazepines Scrn NEGATIVE, Urine Cocaine Screen NEGATIVE, U Cannabinoids Screen NEGATIVE, Ur Drug Screen Comment Imaging Radiology Impression Abdomen/Pelvis CT 03/10/24 09:14 IMPRESSION: 1. No acute abdominal or pelvic abnormality. 2. Suspect right upper lobe pneumonia. Electronically Signed: Goran Pulido MD at 10:41 EDT , Brain CT 03/10/24 09:15 IMPRESSION: No acute intracranial process. Electronically Signed: Abel Centeno MD at 11:10 EDT , Chest X-Ray 03/10/24 09:35 IMPRESSION: Patchy infiltrates in the right upper lobe and left lung base concerning for pneumonia. Electronically Signed: Abel Centeno MD at 11:35 EDT , Assessment & Plan Assessment/Plan (1) Pneumonia: QUALIFIERS: Pneumonia type: due to unspecified organism L aterality: right Lung location: upper lobe of lung Qualified Code(s): J18.9 - Pneumonia, unspecified organism PLAN: Plan This is a 53-year-old gentleman with history of baseline MRDD from a senior living is being admitted for altered mental status/change in behavior for last 2 days. 1. Acute encephalopathy most likely, multifocal due to pneumonia/metabolic/hypoglycemia: Patient is being admitted in the PCU. Orientation cues and treat underlying disorder as mentioned below. 2. Right upper lobe and left lung base, bilateral pneumonia: Chest x-ray initially reviewed and shows right upper lobe infiltrate and left lung base. Lactic acid elevated. Patient does not have fever, tachycardia, tachypnea or hypoxia but mild leukocytosis therefore 1/4 SIRS criteria does not have hypotension or drop in SBP more than 40 mmHg therefore does not meet criteria for sepsis at the time of admission. Patient will second liter of IV fluid bolus. Baseline blood pressure is is in 110s. Pneumonia workup including triple PCR for SARS-CoV-2, flu and RSV, sputum culture, urinary antigens and blood cultures x 2 ordered. Bronchodilator as needed. IV antibiotics ceftriaxone and azithromycin started in the ER and continue 3. Hypoglycemia: Glucose was 60 as per EMS. Oral glucose was given. Repeat glucose 134 in BMP. Accu-Cheks Q4 hourly. Hypoglycemia protocol. Patient does not have diabetes mellitus and is not on antidiabetic medications or insulin. 4. Possible undiagnosed COPD: Patient has chronic cough for a long time and has been smoking since age of 16 previously 1 pack/day but currently half pack per day. Advised follow-up with pulmonary clinic for PFT. 5. 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 Lives with her sister in senior living. Last admitted was in May 2013 for adverse medical reaction from Tegretol with excessive somnolence. Patient on carbamazepine, divalproex, propranolol and escitalopram. Will hold it as BP is on lower side and the patient is encephalopathic. 6. Dyslipidemia: On pravastatin 80 mg daily. Hold it. 7. DVT prophylaxis, moderate to high risk: Lovenox 40 m subcu daily. Living will/advanced directive/end of life care: Patient does not have living will or advanced directive. His power of personal injury attorney for health is her other sister. After discussion of benefits/risks procedures involved with full code, DNR CC arrest and DNR CC, the patient said he wants to be full code Patient does want artificial life support including intubation, tube feed, ventilator and/chest compression, central venous catheter, vasopressor and DC shock if needed Total time spent in [id number] encounter in discussion of advanced directive 17 minutes. Laboratory Results 03/10/24 08:55: POC Glucose 119 H 03/10/24 09:10: WBC 12.0 H, RBC 3.86 L, Hgb 12.1 L, Hct 37.3 L, MCV 96.6 H, MCH 31.3, MCHC 32.4, RDW Std Deviation 42.6, RDW Coeff of [place] 12.0, Plt Count 239, MPV 8.0, Immature Gran % (Auto) 0.700, Neut % (Auto) 72.9 H, Lymph % (Auto) 14.1 L, [place] % (Auto) 11.8 H, Eos % (Auto) 0.1, Baso % (Auto) 0.4, Absolute Neuts (auto) 8.7 H, Absolute Lymphs (auto) 1.69, Nucleated RBC % 0, Sodium 136, Potassium 3.9, Chloride 104, Carbon Dioxide 23.0, Anion Gap 9, BUN 12, Creatinine 0.79, Est GFR (MDRD) Af Amer 132, Est GFR (MDRD) Non-Af 109, BUN/Creatinine Ratio 15.2, Glucose 134 H, Calcium 9.2, Total Bilirubin 0.20, AST 13 L, ALT 11 L, Alkaline Phosphatase 70, Troponin I High Sens 3, Total Protein 7.1, Albumin 2.6 L, Globulin 4.5 H, Albumin/Globulin Ratio 0.6 L, Lipase 34, Ethyl Alcohol < 3.0 03/10/24 09:25: Lactic Acid 2.3 H* 03/10/24 10:16: Urine Color Yellow, Urine Clarity Clear, Urine pH 6.0, Ur Specific [place] 1.010, Urine Protein 30 H, Urine Glucose (UA) Normal, Urine Ketones 5 H, Urine Occult Blood Negative, Urine Nitrite Negative, Urine Bilirubin Negative, Urine Urobilinogen Normal, Ur Leukocyte Esterase Negative, Urine RBC 0-5 SEEN, Urine WBC 0-5 SEEN, Ur Squamous Epith Cells 0-5 SEEN, Urine Bacteria 0 SEEN, Urine Mucus 0 SEEN, Urine Opiates Screen NEGATIVE, Urine Methadone Screen NEGATIVE, Ur Barbiturates Screen NEGATIVE, Ur Phencyclidine Scrn NEGATIVE, Ur Amphetamines Screen NEGATIVE, MDMA (Ecstasy) Screen NEGATIVE, U Benzodiazepines Scrn NEGATIVE, Urine Cocaine Screen NEGATIVE, U Cannabinoids Screen NEGATIVE, Ur Drug Screen Comment 03/10/24 10:35: Magnesium Pending Clinical Impression(s) from Imaging Studies Abdomen/Pelvis CT 03/10/24 09:14 IMPRESSION: 1. No acute abdominal or pelvic abnormality. 2. Suspect right upper lobe pneumonia. Electronically Signed: Goran Pulido MD at 10:41 EDT , Brain CT 03/10/24 09:15 IMPRESSION: No acute intracranial process. Electronically Signed: Abel Centeno MD at 11:10 EDT , Chest X-Ray 03/10/24 09:35 IMPRESSION: Patchy infiltrates in the right upper lobe and left lung base concerning for pneumonia. Charges/Coding Visit Charges Inpatient E&M: 16354 Init Hosp L3 Procedures Hospitalists Procedures: 71152 Advncd Care Plan 30 Min
[2024-03-10] MEDS: Ceftriaxone 1 GM/50 ML BAG IV (12:28)
[2024-03-10] MEDS: Azithromycin 500 MG in Dextrose 5%-Water (250mL Bag) 250 ML 250 MG IV (13:07)
[2024-03-10 13:13] LABS: Magnesium 1.8 mg/dL (1.6-2.6)
[2024-03-10 13:28] LABS: Reflex Lactate? Y
[2024-03-10 14:21] LABS: Lactic Acid 1.7 mmol/L (0.4-1.9)
[2024-03-10] MEDS: KCL 20MEQ in 0.9% NS 20 MEQ/1,000 ML IV.SOLN. 100 MEQ IV (15:00)
[2024-03-10] MEDS: Enoxaparin 40 MG/0.4 ML Syringe SC (15:01)
[2024-03-11] MEDS: KCL 20MEQ in 0.9% NS 20 MEQ/1,000 ML IV.SOLN. 100 MEQ IV ×2 (00:59→11:25)
[2024-03-11 03:05] VITALS: BP 110/59; PULSE 92; RESP 18; TEMP 36.9; O2SAT 93
[2024-03-11 06:32] VITALS: BMI 25.4
[2024-03-11 07:10] LABS: Absolute Lymphocyte Count 1.69 X10^3/uL (0.83-4.51); Absolute Neutrophil Count 6.5 X10^3/uL (2.0-7.7); Basophil# 0.02 X10^3/uL; Basophil% 0.2 % (0-1); Hematocrit 30.4 % (40-54); Lymphocyte # 1.69 X10^3/ul (0.83-4.51); Lymphocyte % 17.5 % (19-41); Mean Corp Hgb Conc 32.9 g/dL (32-36); Mean Corpuscular Hgb 31.9 pg (27.0-32.0); Mean Corpuscular Volume 97.1 fL (80-94); Mean Platelet Vol. 8.3 fl (6.2-12.0); Monocyte# 1.45 X10^3/uL; NRBC Flagged by Analyzer 0 % (0-5); Neutrophil # 6.47 X10^3/uL (2.7-7.7); Neutrophil % 66.8 % (47-70); Platelet Count 166 K/mm3 (150-450); RBC Distribution Width CV 12.4 % (11.6-14.6); Red Blood Count 3.13 M/mm3 (4.6-6.2); White Blood Count 9.7 K/mm3 (4.4-11.0)
[2024-03-11 07:43] LABS: Anion Gap 6 (5-15); BUN 8 mg/dL (7-18); BUN/Creat Ratio 13.7 RATIO (10-20); Calcium,Total 8.5 mg/dL (8.5-10.1); Chloride 107 mmol/L (98-107); Creatinine, Serum 0.58 mg/dL (0.70-1.30); EST Glomerular Filtration Rate 154 mL/min (>60); Est Glom Filt Rate - Afr Amer 186 mL/min (>60); Estimated Creatinine Clearance 150.34 ml/min; Glucose 103 mg/dL (74-106); Potassium 3.5 mmol/L (3.5-5.1); Sodium Level 138 mmol/L (136-145)
[2024-03-11 08:00] VITALS: BP 108/67; PULSE 94; RESP 16; TEMP 36.8; O2SAT 94
[2024-03-11 08:04] VITALS: O2SAT 98
[2024-03-11 08:34] LABS: Hemoglobin A1c 5.1 % (3.8-5.6)
--- NOTE | 2024-03-11 09:38 | CASEMGMT ---
CATERINA noted [facility]. SW met with patient and his sister Germania. SW introduced self and role at [facility]. SW asked if the plan is for patient to return to the penitentiary. Germania said as long as patient can walk that will be the plan. Patient does have steps at his [facility]it[facility]iary. Patient has also been falling. Germania said therapy told him not to use the walker in his penitentiary, but she does not know why. SW will make sure therapy is ordered and see how patient does. Princess Red ELECTRO TECH GOLD
[2024-03-11] MEDS: Azithromycin 500 MG in Dextrose 5%-Water (250mL Bag) 250 ML 250 MG IV (10:25)
--- NOTE | 2024-03-11 10:40 | PN.HOSP_ITS ---
Reason for Visit Reason for Visit: Diagnoses Pneumonia, unspecified organism (03/10/24) Objective Data Objective Data Vital Signs: Vital Signs Temp Pulse Resp BP Pulse Ox O2 Del Method 98.2 F 94 16 108/67 98 Room Air 03/11/24 08:00 03/11/24 08:00 03/11/24 08:00 03/11/24 08:00 03/11/24 08:04 03/11/24 08:04 Oxygen Delivery Method Room Air Weight: 177 lb 11.2 oz Body Mass Index (BMI) 25.4 Intake & Output: Intake and Output for Last 24 Hours 03/09/24 03/10/24 03/11/24 23:59 23:59 23:59 Intake Total 2305 / 2555 2183.33 / 2183.33 Output Total 400 / 970 570 / 570 Balance 1905 / 1585 1613.33 / 1613.33 Lab / Micro Data 03/11/24 06:35 03/11/24 06:35 Labs: Laboratory Results - last 24 hr 03/10/24 10:16: Urine RBC 0-5 SEEN, Urine WBC 0-5 SEEN, Ur Squamous Epith Cells 0-5 SEEN, Urine Bacteria 0 SEEN, Urine Mucus 0 SEEN, Urine Opiates Screen NEGATIVE, Urine Methadone Screen NEGATIVE, Ur Barbiturates Screen NEGATIVE, Ur Phencyclidine Scrn NEGATIVE, Ur Amphetamines Screen NEGATIVE, MDMA (Ecstasy) Screen NEGATIVE, U Benzodiazepines Scrn NEGATIVE, Urine Cocaine Screen NEGATIVE, U Cannabinoids Screen NEGATIVE 03/10/24 10:35: Magnesium 1.8 03/10/24 13:48: Lactic Acid 1.7 03/11/24 06:32: Hemoglobin A1c 5.1 03/11/24 06:35: WBC 9.7, RBC 3.13 L, Hgb 10.0 L, Hct 30.4 L, MCV 97.1 H, MCH 31.9, MCHC 32.9, RDW Std Deviation 44.0 H, RDW Coeff of [place] 12.4, Plt Count 166, MPV 8.3, Immature Gran % (Auto) 0.500, Neut % (Auto) 66.8, Lymph % (Auto) 17.5 L , [place] % (Auto) 15.0 H, Eos % (Auto) 0.0, Baso % (Auto) 0.2, Absolute Neuts (auto) 6.5, Absolute Lymphs (auto) 1.69, Nucleated RBC % 0, Sodium 138, Potassium 3.5, Chloride 107, Carbon Dioxide 25.0, Anion Gap 6, BUN 8, Creatinine 0.58 L, Estim Creat Clear Calc 150.34, Est GFR (MDRD) Af Amer 186, Est GFR (MDRD) Non-Af 154, BUN/Creatinine Ratio 13.7, Glucose 103, Calcium 8.5 Micro: Microbiology 03/10/24 22:40 Urine, Clean Catch Legionella Antigen - Final 03/10/24 22:40 Urine, Clean Catch Streptococcus pneumoniae Antigen (M - Final 03/10/24 15:12 Nasal Secretion MRSA (PCR) - Final 03/10/24 12:47 Mucosa - Nose SARS-CoV-2, Influenza & RSV (PCR) - Final Radiography Diagnostic Testing: Radiology Impression Abdomen/Pelvis CT 03/10/24 09:14 IMPRESSION: 1. No acute abdominal or pelvic abnormality. 2. Suspect right upper lobe pneumonia. Electronically Signed: Goran Pulido MD at 10:41 EDT , Brain CT 03/10/24 09:15 IMPRESSION: No acute intracranial process. Electronically Signed: Abel Centeno MD at 11:10 EDT , Chest X-Ray 03/10/24 09:35 IMPRESSION: Patchy infiltrates in the right upper lobe and left lung base concerning for pneumonia. Electronically Signed: Abel Centeno MD at 11:35 EDT , Physical Exam Narrative General: Awake, confused, disoriented, incoherent speech. HEENT: Atraumatic, PERRLA, EOMI, Normocephalic. Right-sided facial droop because of traumatic accident. Oral: Oral mucosa dry. No Gingival or Mucosal Lesions/ Ulcerations Neck: Supple, No JVD, Negative Carotid Bruits Chest wall/Lungs: Air entry diminished in bilateral lung bases. No crepitation/rhonchi. Not tachypneic. Cardiovascular: Regular rate, Regular Rhythm, Normal S1, Normal S2, No M/G/R Abdomen: Bowel Sounds Present, Soft, Non Tender, Non-Distended : No dysuria. No renal angle tenderness. No suprapubic tenderness. Extremities: No edema, Capillary Refill Less than 3 Seconds Skin: No rashes, No breakdown Musculoskeletal: No Tenderness to Palpation of Joints or Extremities Neurological: Cranial nerves II-XII grossly intact, DTR 2+/4. No acute focal neurological deficit. Psych/Mental Status: Flat affect. Baseline intellectual and developmental disability. Disorganized behavior. Difficulty completing tasks. Assessment & Plan Assessment/Plan (1) Pneumonia: QUALIFIERS: Pneumonia type: due to unspecified organism L aterality: right Lung location: upper lobe of lung Qualified Code(s): J18.9 - Pneumonia, unspecified organism PLAN: Plan This is a 53-year-old gentleman with history of baseline MRDD from a [place] [facility] is being admitted for altered mental status/change in behavior for last 2 days. 1. Acute encephalopathy most likely, multifocal due to pneumonia/metabolic/hypoglycemia: Patient is being admitted in the PCU. Orientation cues and treat underlying disorder as mentioned below. Potassium on low on normal range. Potassium replacement ordered. 2. Right upper lobe and left lung base, bilateral pneumonia: Chest x-ray initially reviewed and shows right upper lobe infiltrate and left lung base. Lactic acid elevated. Patient does not have fever, tachycardia, tachypnea or hypoxia but mild leukocytosis therefore 1/4 SIRS criteria does not have hypotension or drop in SBP more than 40 mmHg therefore does not meet criteria for sepsis at the time of admission. Patient will second liter of IV fluid bolus. Baseline blood pressure is is in 110s. Pneumonia workup including triple PCR for SARS-CoV-2, flu and RSV, sputum culture, urinary antigens and blood cultures x 2 ordered. Bronchodilator as needed. IV antibiotics ceftriaxone and azithromycin started in the ER and continue 3. Hypoglycemia: Glucose was 60 as per EMS. Oral glucose was given. Repeat glucose 134 in BMP. Accu-Cheks Q4 hourly. Hypoglycemia protocol. Patient does not have diabetes mellitus and is not on antidiabetic medications or insulin. 4. Possible undiagnosed COPD: Patient has chronic cough for a long time and has been smoking since age of 16 previously 1 pack/day but currently half pack per day. Advised follow-up with pulmonary clinic for PFT. 5. 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 Lives [place] sister [place] [facility]. Last admitted was in May 2013 for adverse medical reaction from Tegretol with excessive somnolence. Patient on carbamazepine, divalproex, propranolol and escitalopram. Will hold it as BP is on lower side and the patient is encephalopathic. 6. Dyslipidemia: On pravastatin 80 mg daily. Hold it. 7. DVT prophylaxis, moderate to high risk: Lovenox 40 m subcu daily. Living will/advanced directive/end of life care: Patient does not have living will or advanced directive. His power of employment law attorney for health is her other sister. After discussion of benefits/risks procedures involved with full code, DNR CC arrest and DNR CC, the patient said he wants to be full code Patient does want artificial life support including intubation, tube feed, ventilator and/chest compression, central venous catheter, vasopressor and DC shock if needed Total time spent in [id number] encounter in discussion of advanced directive 17 minutes. Laboratory Results 03/10/24 08:55: POC Glucose 119 H 03/10/24 09:10: WBC 12.0 H, RBC 3.86 L, Hgb 12.1 L, Hct 37.3 L, MCV 96.6 H, MCH 31.3, MCHC 32.4, RDW Std Deviation 42.6, RDW Coeff of [place] 12.0, Plt Count 239, MPV 8.0, Immature Gran % (Auto) 0.700, Neut % (Auto) 72.9 H, Lymph % (Auto) 14.1 L, [place] % (Auto) 11.8 H, Eos % (Auto) 0.1, Baso % (Auto) 0.4, Absolute Neuts (auto) 8.7 H, Absolute Lymphs (auto) 1.69, Nucleated RBC % 0, Sodium 136, Potassium 3.9, Chloride 104, Carbon Dioxide 23.0, Anion Gap 9, BUN 12, Creatinine 0.79, Est GFR (MDRD) Af Amer 132, Est GFR (MDRD) Non-Af 109, BUN/Creatinine Ratio 15.2, Glucose 134 H, Calcium 9.2, Total Bilirubin 0.20, AST 13 L, ALT 11 L, Alkaline Phosphatase 70, Troponin I High Sens 3, Total Protein 7.1, Albumin 2.6 L, Globulin 4.5 H, Albumin/Globulin Ratio 0.6 L, Lipase 34, Ethyl Alcohol < 3.0 03/10/24 09:25: Lactic Acid 2.3 H* 03/10/24 10:16: Urine Color Yellow, Urine Clarity Clear, Urine pH 6.0, Ur Specific [place] 1.010, Urine Protein 30 H, Urine Glucose (UA) Normal, Urine Ketones 5 H, Urine Occult Blood Negative, Urine Nitrite Negative, Urine Bilirubin Negative, Urine Urobilinogen Normal, Ur Leukocyte Esterase Negative, Urine RBC 0-5 SEEN, Urine WBC 0-5 SEEN, Ur Squamous Epith Cells 0-5 SEEN, Urine Bacteria 0 SEEN, Urine Mucus 0 SEEN, Urine Opiates Screen NEGATIVE, Urine Methadone Screen NEGATIVE, Ur Barbiturates Screen NEGATIVE, Ur Phencyclidine Scrn NEGATIVE, Ur Amphetamines Screen NEGATIVE, MDMA (Ecstasy) Screen NEGATIVE, U Benzodiazepines Scrn NEGATIVE, Urine Cocaine Screen NEGATIVE, U Cannabinoids Screen NEGATIVE, Ur Drug Screen Comment 03/10/24 10:35: Magnesium Pending Clinical Impression(s) from Imaging Studies Abdomen/Pelvis CT 03/10/24 09:14 IMPRESSION: 1. No acute abdominal or pelvic abnormality. 2. Suspect right upper lobe pneumonia. Electronically Signed: Groan Pulido MD at 10:41 EDT , Brain CT 03/10/24 09:15 IMPRESSION: No acute intracranial process. Electronically Signed: Abel Centeno MD at 11:10 EDT , Chest X-Ray 03/10/24 09:35
[2024-03-11] MEDS: FLU VACC 2024-25(6MOS UP)/PF 45 MCG/0.5 ML SYRINGE IM (11:25)
[2024-03-11] MEDS: Ceftriaxone 2 GM in 0.9% Normal Saline (50mL MB+) 50 ML IV (11:25)
[2024-03-11] MEDS: Enoxaparin 40 MG/0.4 ML Syringe SC (11:27)
[2024-03-11] MEDS: guaiFENesin 1,200 MG Tablet 1200 MG PO ×3 (11:27→22:48)
[2024-03-11] MEDS: Potassium Chloride Oral Tablet 20 MEQ 40 MEQ PO ×4 (11:29→18:35)
[2024-03-11 18:40] VITALS: BP 112/62; PULSE 95; RESP 14; TEMP 37; O2SAT 95
--- NOTE | 2024-03-11 19:00 | NURSING ---
hospital on emergency documentation
[2024-03-11 22:46] VITALS: BP 110/68; PULSE 85; RESP 16; TEMP 36.6; O2SAT 93
[2024-03-11] MEDS: Acetaminophen 325 MG Tablet 650 MG PO (22:48)
[2024-03-12 04:00] VITALS: BP 112/68; PULSE 70; RESP 16; TEMP 36.6; O2SAT 93
[2024-03-12 07:00] VITALS: PULSE 68
[2024-03-12 08:10] VITALS: O2SAT 93
[2024-03-12 09:38] VITALS: BP 116/77; PULSE 80; RESP 16; TEMP 36.4; O2SAT 97
[2024-03-12] MEDS: 0.9% Saline Lock 10 ML Syringe IV (09:40)
[2024-03-12] MEDS: Enoxaparin 40 MG/0.4 ML Syringe SC (09:40)
[2024-03-12] MEDS: Ceftriaxone 2 GM in 0.9% Normal Saline (50mL MB+) 50 ML IV (09:40)
[2024-03-12] MEDS: guaiFENesin 1,200 MG Tablet 1200 MG PO (09:40)
[2024-03-12] MEDS: 0.9% Normal Saline (250mL Bag) 250 ML 15 ML IV (09:44)
--- NOTE | 2024-03-12 10:22 | DCINST_ITS ---
Discharge Instructions Diet Discharge Diet: Low fat / Low cholesterol Activity Discharge Activity: Return to Normal Activity Weight Bearing Status: Weight bearing as tolerated Dressing / Incision Call your doctor if you observe: Fever of 101 or Higher, Coldness, Increased Pain, Numbness or Tingling, Change in Color, Inability to urinate, Inability to have a bowel movement, Shortness of breath, Dizziness, Fainting spells, Swelling in the ankles, Chest pain, Prolonged hiccupping, Increased palpitations (irregular heartbeat) and Calf discomfort Follow Up Care When: IN 2 WEEKS Test Results: Test results from this visit will be discussed in further detail at your follow- up appointment, if applicable. Discharge Plan Admission Admit Date/Time: 03/10/24 12:28 Primary Reason for Your Visit: Right lower lobe pneumonia Attending Provider: Barry Mckeon Primary Care Provider: Rodney Carroll Instructions Additional Instructions / Restrictions: Advised quitting smoking. Discharge Orders/Prescriptions Prescriptions: New meloxicam 7.5 mg Tablet 7.5 mg PO DAILY Qty: 0 0RF Rx Instructions: Take half tablet of meloxicam 15 mg that is 7.5 mg daily patient has at home sennosides-docusate sodium [Stimulant Laxative Plus] 8.6-50 mg Tablet 2 tab PO BID PRN PRN (Reason: Constipation) Qty: 0 0RF dextromethorphan-guaifenesin [Mucinex DM] 60-1,200 mg tablet extended release 12 hr 1 tab PO Q12H 7 Days Qty: 14 0RF cefdinir 300 mg capsule 300 mg PO BID 5 Days Qty: 10 0RF nicotine 21 mg/24 hr patch 24 hour 21 mg transdermal DAILY 28 Days Qty: 28 0RF Continued divalproex 500 mg tablet extended release 24 hr 500 mg PO BID Patient Comments: TAKE 3 TABLETS BY MOUTHYTWICE DAILY. propranolol 40 MG tablet 20 mg PO BID Patient Comments: heart/blood pressure/tremors pravastatin 80 MG tablet 80 mg PO QHS Patient Comments: cholesterol med carbamazepine 200 MG tablet 200 mg PO DAILY Patient Comments: mental/mood disorder carbamazepine 200 MG tablet 400 mg PO QHS escitalopram oxalate 20 MG tablet 20 mg PO DAILY Held dextromethorphan-quinidine 20-10 mg capsule 1 cap PO Q12H Hold Instructions: Hold while patient is taking Mucinex DM. Patient Comments: TAKE ONE CAPSULE BY MOUTHYEVERY TWELVE HOURS. Discontinued meloxicam 15 mg tablet 15 mg PO DAILY Referrals / Follow Up: Rodney Carroll MD [Primary Care Provider] - Within 1 Week (Follow-up for pneumonia from hospitalization) Disposition Disposition (needs filled in before D/C Order can be placed): Home, Self Care
[2024-03-12] MEDS: Azithromycin 500 MG in Dextrose 5%-Water (250mL Bag) 250 ML 250 MG IV (10:31)
--- NOTE | 2024-03-12 11:16 | PCM.DC.SUM ---
Providers Date of Admission: 03/10/24 Date of Discharge: 03/12/24 Primary Care Physician: Dr. 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 1. Acute encephalopathy most likely, multifocal due to pneumonia/metabolic/hypoglycemia: Patient is being admitted in the PCU. Orientation cues and treat underlying disorder as mentioned below. Potassium on low on normal range. Potassium replacement ordered. 03/11: Acute encephalopathy resolved. Patient is talking, oriented and makes sense and attentive and daily conversation 2. Right upper lobe and left lung base, bilateral pneumonia: Chest x-ray initially reviewed and shows right upper lobe infiltrate and left lung base. Lactic acid elevated. Patient does not have fever, tachycardia, tachypnea or hypoxia but mild leukocytosis therefore 1/4 SIRS criteria does not have hypotension or drop in SBP more than 40 mmHg therefore does not meet criteria for sepsis at the time of admission. Patient will second liter of IV fluid bolus. Baseline blood pressure is is in 110s. Pneumonia workup including triple PCR for SARS-CoV-2, flu and RSV, sputum culture, urinary antigens and blood cultures x 2 ordered. Bronchodilator as needed. IV antibiotics ceftriaxone and azithromycin started in the ER and continue 03/11: Urinary antigens are negative. MRSA PCR negative. Triple PCR for SARS-CoV-2, flu and RSV are negative 03/12: Patient is doing well. Lungs are clear. Not on oxygen. Not tachypneic. Patient is discharged on cefdinir 3 mg twice daily for 5 more days to complete a 1 week of antibiotic. Patient had 3 days of IV antibiotics during hospital stay. Prescription for nicotine patch and Mucinex DM were given. Meloxicam dose was decreased to 7.5 mg daily. 3. Hypoglycemia: Glucose was 60 as per EMS. Oral glucose was given. Repeat glucose 134 in BMP. Accu-Cheks Q4 hourly. Hypoglycemia protocol. Patient does not have diabetes mellitus and is not on antidiabetic medications or insulin. 03/11: A1c 5.1. Consistent with low glucose. Glucose in BMP is 103. 03/12 follow-up with PCP. 4. Possible undiagnosed COPD: Patient has chronic cough for a long time and has been smoking since age of 16 previously 1 pack/day but currently half pack per day. Advised follow-up with pulmonary clinic for PFT. 5. 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 Lives with her sister in care home. Last admitted was in May 2013 for adverse medical reaction from Tegretol with excessive somnolence. Patient on carbamazepine, divalproex, propranolol and escitalopram. Will hold it as BP is on lower side and the patient is encephalopathic. 6. Dyslipidemia: On pravastatin 80 mg daily. Hold it. 7. DVT prophylaxis, moderate to high risk: Lovenox 40 mg subcu daily. Discharge medication reconciliation done. Discharge follow-up instructions completed. Discharge process discussed with the patient and all questions were answered to patient's satisfaction. Follow with PCP in 1 to 2 weeks Total time spent, exact 35 minutes on discharge meds reconciliation, examination, coordination of care with nurses and ancillary staff, review of imaging and blood test and discussion with the patient on follow-up instructions. Living will/advanced directive/end of life care: Patient does not have living will or advanced directive. His power of energy attorney for health is her other sister. After discussion of benefits/risks procedures involved with full code, DNR CC arrest and DNR CC, the patient said he wants to be full code Patient does want artificial life support including intubation, tube feed, ventilator and/chest compression, central venous catheter, vasopressor and DC shock if needed Microbiology Past 72 Hours 03/12/24 11:53 Sputum, Expectorated/Coughed Gram Stain - Final 03/10/24 22:40 Urine, Clean Catch Legionella Antigen - Final 03/10/24 22:40 Urine, Clean Catch Streptococcus pneumoniae Antigen (M - Final 03/10/24 15:12 Nasal Secretion MRSA (PCR) - Final 03/10/24 12:47 Mucosa - Nose SARS-CoV-2, Influenza & RSV (PCR) - Final Clinical Impression(s) from Imaging Studies Abdomen/Pelvis CT 03/10/24 09:14 IMPRESSION: 1. No acute abdominal or pelvic abnormality. 2. Suspect right upper lobe pneumonia. Electronically Signed: Goran Pulido MD at 10:41 EDT , Brain CT 03/10/24 09:15 IMPRESSION: No acute intracranial process. Electronically Signed: Abel Centeno MD at 11:10 EDT , Chest X-Ray 03/10/24 09:35 IMPRESSION: Patchy infiltrates in the right upper lobe and left lung base concerning for pneumonia. Medications at Discharge Home Medications pravastatin 80 mg tablet 80 mg PO QHS cholesterol 05/16/13 propranolol 40 mg tablet 20 mg PO BID Blood Pressure/ HR 05/16/13 carbamazepine 200 mg tablet 200 mg PO DAILY Epilepsy 06/16/13 dextromethorphan 20 mg-quinidine 10 mg capsule 1 cap PO Q12H Emotional Incontinence 08/18/20 divalproex 500 mg tablet,extended release 24 hr 500 mg PO BID Epilepsy 08/18/20 carbamazepine 200 mg tablet 400 mg PO QHS Mental/ Mood disorder 08/27/20 escitalopram oxalate 20 mg tablet 20 mg PO DAILY Mood 08/27/20 cefdinir 300 mg capsule 300 mg PO BID 5 days #10 caps 03/12/24 dextromethorphan-guaifenesin ER 60 mg-1,200 mg tab,extend release,12hr (Mucinex DM) 1 tab PO Q12H 7 days #14 tabs 03/12/24 meloxicam 7.5 mg tablet 7.5 mg PO DAILY #0 tabs 03/12/24 nicotine 21 mg/24 hr daily transdermal patch 21 mg transdermal DAILY 28 days #28 ea 03/12/24 sennosides 8.6 mg-docusate sodium 50 mg tablet (Stimulant Laxative Plus) 2 tab PO BID PRN PRN Constipation #0 tabs 03/12/24 Physical Exam Narrative Seen and examined. Patient was seen and examined in the presence of her sister near the bedside. Patient was instructed not to smoke. His room partner in care home also smokes. Physical exam General: Awake, alert oriented x 3. On baseline mental function. HEENT: Atraumatic, PERRLA, EOMI, Normocephalic. Right-sided facial droop because of traumatic accident. Oral: Oral mucosa dry. No Gingival or Mucosal Lesions/ Ulcerations Neck: Supple, No JVD, Negative Carotid Bruits Chest wall/Lungs: Air entry diminished in bilateral lung bases. No crepitation/rhonchi. Not tachypneic Or hypoxic Cardiovascular: Regular rate, Regular Rhythm, Normal S1, Normal S2, No M/G/R Abdomen: Bowel Sounds Present, Soft, Non Tender, Non-Distended : No dysuria. No renal angle tenderness. No suprapubic tenderness. Extremities: No edema, Capillary Refill Less than 3 Seconds Skin: No rashes, No breakdown Musculoskeletal: No Tenderness to Palpation of Joints or Extremities Neurological: Cranial nerves II-XII grossly intact, DTR 2+/4. No acute focal neurological deficit. Psych/Mental Status: Flat affect. Baseline intellectual and developmental disability. Weight / BMI Weight Weight: 177 lb 11.2 oz Body Mass Index (BMI) 25.4 ABG / Lab / Microbiology Data 03/11/24 06:35 03/11/24 06:35 Microbiology: Microbiology 03/10/24 22:40 Urine, Clean Catch Legionella Antigen - Final 03/10/24 22:40 Urine, Clean Catch Streptococcus pneumoniae Antigen (M - Final 03/10/24 15:12 Nasal Secretion MRSA (PCR) - Final 03/10/24 12:47 Mucosa - Nose SARS-CoV-2, Influenza & RSV (PCR) - Final D/C Instructions Discharge Diet: Low fat / Low cholesterol Weight Bearing Status: Weight bearing as tolerated Call your doctor if you observe: Fever of 101 or Higher, Coldness, Increased Pain, Numbness or Tingling, Change in Color, Inability to urinate, Inability to have a bowel movement, Shortness of breath, Dizziness, Fainting spells, Swelling in the ankles, Chest pain, Prolonged hiccupping, Increased palpitations (irregular heartbeat) and Calf discomfort When: IN 2 WEEKS Meaningful Use Info Meaningful Use Meaningful Use Diagnoses (Choose all that apply): None applicable Ischemic Stroke Statin Dosing Therapy Reference: STATIN DOSE THERAPY REFERENCE: * Patients > 75 years receive moderate or high dose statin therapy. * Patients 75 years or YOUNGER should receive HIGH intensity statin dose unless contraindicated. You will be required to document reason for non-treatment if statin daily dose does not meet guidelines. HIGH DOSE STATIN THERAPY DAILY Atorvastatin > than or = to 40 mg Rosuvastatin > than or = to 20 mg Amlodipine + Atorvastatin > than or = to 2.5/40 mg Ezetimibe + Simvastatin 10/80 mg Simvastatin 80mg Discharge Plan Admission Admit Date/Time: 03/10/24 12:28 Primary Reason for Your Visit: Right lower lobe pneumonia Attending Provider: Barry Mckeon Primary Care Provider: Rodney Carroll Instructions Additional Instructions / Restrictions: Advised quitting smoking. Discharge Orders/Prescriptions Prescriptions: New meloxicam 7.5 mg Tablet 7.5 mg PO DAILY Qty: 0 0RF Rx Instructions: Take half tablet of meloxicam 15 mg that is 7.5 mg daily patient has at home sennosides-docusate sodium [Stimulant Laxative Plus] 8.6-50 mg Tablet 2 tab PO BID PRN PRN (Reason: Constipation) Qty: 0 0RF dextromethorphan-guaifenesin [Mucinex DM] 60-1,200 mg tablet extended release 12 hr 1 tab PO Q12H 7 Days Qty: 14 0RF cefdinir 300 mg capsule 300 mg PO BID 5 Days Qty: 10 0RF nicotine 21 mg/24 hr patch 24 hour 21 mg transdermal DAILY 28 Days Qty: 28 0RF Continued divalproex 500 mg tablet extended release 24 hr 500 mg PO BID Patient Comments: TAKE 3 TABLETS BY MOUTHYTWICE DAILY. propranolol 40 MG tablet 20 mg PO BID Patient Comments: heart/blood pressure/tremors pravastatin 80 MG tablet 80 mg PO QHS Patient Comments: cholesterol med carbamazepine 200 MG tablet 200 mg PO DAILY Patient Comments: mental/mood disorder carbamazepine 200 MG tablet 400 mg PO QHS escitalopram oxalate 20 MG tablet 20 mg PO DAILY Held dextromethorphan-quinidine 20-10 mg capsule 1 cap PO Q12H Hold Instructions: Hold while patient is taking Mucinex DM. Patient Comments: TAKE ONE CAPSULE BY MOUTHYEVERY TWELVE HOURS. Discontinued meloxicam 15 mg tablet 15 mg PO DAILY Referrals / Follow Up: Rodney Carroll MD [Primary Care Provider] - Within 1 Week (Follow-up for pneumonia from hospitalization) Chon Young DO [Med Staff - Active Staff] - Within 1 Month (For suspected COPD. Chronic smoking. Admitted for pneumonia) Disposition Disposition (needs filled in before D/C Order can be placed): Home, Self Care Charges/Coding Visit Charges Inpatient E&M: 85142 Disch Hosp >30min
--- NOTE | 2024-03-12 11:31 | PHA.DC.MR.R ---
Pharmacy [facility] Med Reconciliation Pharmacy Service has performed discharge medication reconciliation for this patient. The patient's discharge medication list was reviewed for discrepancies and discrepancies were resolved. Medications at Discharge Home Medications pravastatin 80 mg tablet 80 mg PO QHS cholesterol 05/16/13 propranolol 40 mg tablet 20 mg PO BID Blood Pressure/ HR 05/16/13 carbamazepine 200 mg tablet 200 mg PO DAILY Epilepsy 06/16/13 dextromethorphan 20 mg-quinidine 10 mg capsule 1 cap PO Q12H Emotional Incontinence 08/18/20 divalproex 500 mg tablet,extended release 24 hr 500 mg PO BID Epilepsy 08/18/20 carbamazepine 200 mg tablet 400 mg PO QHS Mental/ Mood disorder 08/27/20 escitalopram oxalate 20 mg tablet 20 mg PO DAILY Mood 08/27/20 cefdinir 300 mg capsule 300 mg PO BID 5 days #10 caps 03/12/24 dextromethorphan-guaifenesin ER 60 mg-1,200 mg tab,extend release,12hr (Mucinex DM) 1 tab PO Q12H 7 days #14 tabs 03/12/24 meloxicam 7.5 mg tablet 7.5 mg PO DAILY #0 tabs 03/12/24 nicotine 21 mg/24 hr daily transdermal patch 21 mg transdermal DAILY 28 days #28 ea 03/12/24 sennosides 8.6 mg-docusate sodium 50 mg tablet (Stimulant Laxative Plus) 2 tab PO BID PRN PRN Constipation #0 tabs 03/12/24
--- NOTE | 2024-03-12 11:33 | CASEMGMT ---
Patient is ready for discharge. CATERINA called patient's sister Germania and let her know. Germania was aware as she was able to talk with the physician this am. CATERINA told Germania patient did well with therapy as long as he uses the walker. Therapy also did steps with patient. Germania was open to home health for patient. CATERINA asked if a [employer] runs the nursing home where he lives. [id number] runs the nursing home. CATERINA told Germania CATERINA will send an order for home health PT/OT with patient as [facility] sets up their own home health. Germania said she will be in around 130 to pepper picker patient. CATERINA will notify RN. Plan: d/c back to nursing home with order for home health PT/OT for [facility] to set up. Princess MALCOLM
[2024-03-12] MEDS: carBAMazepine 200 MG Tablet PO (11:38)
[2024-03-12] MEDS: Propranolol 10 MG Tablet 20 MG PO (11:39)
[2024-03-12] MEDS: Meloxicam 7.5 MG Tablet PO (11:39)
[2024-03-12 11:41] VITALS: O2SAT 92; O2SAT 98
[2024-03-12 14:15] VITALS: BP 108/74; PULSE 79; RESP 16; TEMP 36.6; O2SAT 97
== END 2024-03-12 14:25 | disposition home or self-care (01) | DRG 193 ==
LOC: ED 12:31 → PCU 12:55
PROVIDERS: Admitting Provider Internal Medicine; Emergency Provider Surgery; PCP Family Medicine; Visit Provider Internal Medicine
DX: J18.9 Pneumonia, unspecified organism (principal); G93.41 Metabolic encephalopathy; J44.0 Chronic obstructive pulmonary disease with (acute) lower respiratory infection; G40.909 Epilepsy, unspecified, not intractable, without status epilepticus; F20.9 Schizophrenia, unspecified; E78.5 Hyperlipidemia, unspecified; F17.210 Nicotine dependence, cigarettes, uncomplicated; E87.6 Hypokalemia; E16.2 Hypoglycemia, unspecified; F79 Unspecified intellectual disabilities; Z79.899 Other long term (current) drug therapy; Z87.820 Personal history of traumatic brain injury; Z86.16 Personal history of COVID-19; Z23 Encounter for immunization
CPT/HCPCS: 36415; 70450; 71045; 74177; 80048; 80053; 80307; 81001; 82077; 82962; 83036; 83605; 83690; 83735; 84484; 85025; 87040; 87070; 87205; 87449; 87631; 87641; 90656; 93005; 94668; 97110; 97116; 97162; 97166; 97530; 97535; 99284; J7030; J7050; Q9967; A4216; J0696